=== PATIENT | female | born 1960 | race Caucasian/White ===

== ENCOUNTER 2020-02-02 07:28 | Outpatient (CLI) | payer OTHER | END 2020-02-02 07:40 | disposition home or self-care (01) | LOC: RAD 07:28 | PROVIDERS: ATTEND Internal Medicine Rheumatology | DX: M15.0 Primary generalized (osteo)arthritis (principal) ==

== ENCOUNTER 2020-03-26 08:26 | Outpatient (CLI) | payer OTHER | END 2020-03-26 08:36 | disposition home or self-care (01) | LOC: RAD 08:26 | PROVIDERS: ATTEND Orthopaedic Surgery | DX: M62.830 Muscle spasm of back (principal); M40.40 Postural lordosis, site unspecified ==

== ENCOUNTER 2020-05-15 12:33 | Outpatient (CLI) | payer OTHER | END 2020-05-15 12:46 | disposition HB | LOC: SONOGRAMA 12:33 → MAMO-SONO 13:15 | PROVIDERS: ATTEND Physical Medicine & Rehabilitation | DX: M25.512 Pain in left shoulder (principal) ==

== ENCOUNTER 2020-05-31 08:48 | Outpatient (CLI) | payer OTHER | END 2020-05-31 08:55 | disposition home or self-care (01) | LOC: RAD 08:48 | PROVIDERS: ATTEND Orthopaedic Surgery | DX: M48.02 Spinal stenosis, cervical region (principal) ==

== ENCOUNTER 2020-07-29 08:33 | Outpatient (CLI) | payer OTHER | END 2020-07-29 08:48 | disposition home or self-care (01) | LOC: MAMO-SONO 08:33 | PROVIDERS: ATTEND Student in an Organized Health Care Education/Training Program | DX: N60.11 Diffuse cystic mastopathy of right breast (principal); N60.12 Diffuse cystic mastopathy of left breast ==

== ENCOUNTER 2020-11-05 09:10 | Outpatient (CLI) | payer OTHER | END 2020-11-05 09:15 | disposition home or self-care (01) | LOC: SONOGRAMA 09:10 → MAMO-SONO 10:15 | PROVIDERS: ATTEND Internal Medicine Rheumatology | DX: M15.0 Primary generalized (osteo)arthritis (principal); M15.4 Erosive (osteo)arthritis; M06.4 Inflammatory polyarthropathy ==

== ENCOUNTER → 2021-01-30 14:15 | Outpatient (CLI) | payer OTHER | END | disposition home or self-care (01) | LOC: NUCLEAR 13:45 | PROVIDERS: ATTEND Student in an Organized Health Care Education/Training Program | DX: M81.0 Age-related osteoporosis without current pathological fracture (principal) ==

== ENCOUNTER 2021-05-27 08:03 | Outpatient (CLI) | payer OTHER | END 2021-05-27 08:17 | disposition home or self-care (01) | LOC: MAMO-SONO 08:03 | PROVIDERS: ATTEND Student in an Organized Health Care Education/Training Program | DX: N60.11 Diffuse cystic mastopathy of right breast (principal); N60.12 Diffuse cystic mastopathy of left breast ==

== ENCOUNTER 2021-10-11 08:05 | Outpatient (CLI) | payer OTHER | END 2021-10-11 08:12 | disposition home or self-care (01) | LOC: RAD 08:05 | PROVIDERS: ATTEND Internal Medicine Rheumatology | DX: M15.0 Primary generalized (osteo)arthritis (principal); M06.4 Inflammatory polyarthropathy ==

== ENCOUNTER 2022-08-12 07:40 | Outpatient (CLI) | payer OTHER | END 2022-08-12 07:42 | disposition home or self-care (01) | LOC: MAMO-SONO 07:40 | PROVIDERS: ATTEND Student in an Organized Health Care Education/Training Program | DX: N60.11 Diffuse cystic mastopathy of right breast (principal); N60.12 Diffuse cystic mastopathy of left breast ==

== ENCOUNTER 2022-09-28 07:39 | Outpatient (CLI) | payer OTHER | END 2022-09-28 07:46 | disposition home or self-care (01) | LOC: RAD 07:39 | PROVIDERS: ATTEND Physical Medicine & Rehabilitation | DX: M54.2 Cervicalgia (principal); M54.12 Radiculopathy, cervical region ==

== ENCOUNTER 2023-05-18 08:46 | Outpatient (CLI) | payer OTHER | END 2023-05-18 08:54 | disposition home or self-care (01) | LOC: SONOGRAMA 08:46 | PROVIDERS: ATTEND Internal Medicine Rheumatology | DX: E04.2 Nontoxic multinodular goiter (principal); M06.4 Inflammatory polyarthropathy ==

== ENCOUNTER 2023-11-08 08:18 | Outpatient (CLI) | payer OTHER | END 2023-11-08 08:41 | disposition home or self-care (01) | LOC: MAMO-SONO 08:18 | PROVIDERS: ATTEND Internal Medicine Rheumatology | DX: N60.11 Diffuse cystic mastopathy of right breast (principal); N60.12 Diffuse cystic mastopathy of left breast; R10.31 Right lower quadrant pain; N30.10 Interstitial cystitis (chronic) without hematuria ==